=== PATIENT | female | born 1960 | race Caucasian/White ===

== ENCOUNTER 2016-11-12 17:17 | Emergency (ER) | payer OTHER ==
[~2016-11-12] VITALS: Ht 165.1 cm; Wt 65.8 kg
[~2016-11-12 17:17] MED LIST: ALPRAZOLAM0.5 M4 PO; CLONAZEPAM1 M2 PO; CYCLOBENZAPRINE10 M1 PO; CYMBALTA 30 MG30 MG PO; CYMBALTA60 MG PO; DILAUDID2 M1 PO; DOXYCYCLINE HY100 M2 PO; DUEXIS 800-26.1 EACH PO; FLEXERIL10 MG PO; GABAPENTIN300 M2 PO; KEFLEX500 MG PO; MEDROL DOSEPAK1 PAC PO; METAXALONE800 M1 PO; OMEPRAZOLE40 M1 PO; OXYCODONE/APAP1 TAB PO; OXYCODONE5 M1 PO; PERCOCET 325 MG1 TA2 PO; PREVACID 30MG30 MG PO; SUPER B COMPLEX1 CAP PO; SYNTHROID125 MCG PO; TRAMADOL HCL50 M1 PO; VICODIN 5-3001 EACH PO; VITAMIN C500 M8 PO; VITAMIN D1000 IU PO; ZOFRAN4 M2 PO
[2016-11-12 17:38] VITALS: BP 125/95
[2016-11-12] MEDS ORDERED: BACLOFEN10 M1 PO (18:24)
[2016-11-12] MEDS ORDERED: PERCOCET 5-3251 EACH PO (18:24)
--- NOTE | 2016-11-12 18:26 | ED NECK/BACK PAIN COMPLAINT ---
History of Present Illness General Chief Complaint: Lower Extremity Problems Stated Complaint: BILATERAL LOWER EXTREMITY PAIN Source: patient, old records Exam Limitations: no limitations Vital Signs & Intake/Output Vital Signs & Intake/Output Vital Signs Date Time Temp Pulse Resp B/P B/P Pulse O2 O2 Flow FiO2 Mean Ox Delivery Rate 11/12 1808 Room Air 11/12 1738 96.9 105 18 125/95 100 Room Air Allergies Coded Allergies: NSAIDS (Non-Steroidal Anti-Inflamma (AREVALO HOLE IN STOMACH 10/08/15) amoxicillin (From AUGMENTIN) (NAUSEA 10/08/15) aspirin (AREVALO HOLE IN STOMACH, NAUSE 10/08/15) clavulanic acid (From AUGMENTIN) (NAUSEA 10/08/15) morphine (HIVES 10/08/15) Reconcile Medications Ascorbic Acid (Vitamin C) 500 MG TABLET 1 TAB PO DAILY SUPPLEMENT (Reported) B COMPLEX WITH VITAMIN C (Super B Complex With C) 1 EACH CAPSULE 1 CAP PO DAILY SUPPLEMENT (Reported) Baclofen 10 MG TABLET 1-2 TAB PO TID PRN muscle strain Cholecalciferol (Vitamin D3) 1,000 UNIT TABLET 3 TAB PO DAILY SUPPLEMENT ( Reported) Clonazepam 1 MG TABLET 1 TAB PO TID ANXIETY (Reported) Cyclobenzaprine HCl 10 MG TABLET 1 TAB PO TID PRN MUSCLE SPASMS (Reported) DULOXETINE HCL (Cymbalta) 60 MG CAPSULE.DR 1 CAP PO DAILY CARPAL TUNNEL AND FIBROMYALGIA (Reported) Duloxetine Hydrochloride (Cymbalta) 30 MG CAPSULE.DR 1 CAP PO DAILY CARPAL TUNNEL/FIBROMYALGIA (Reported) Gabapentin 300 MG CAPSULE 1 CAP PO BID FIBROMYALGIA (Reported) Gabapentin 300 MG CAPSULE 2 CAP PO QPM FIBROMYALGIA (Reported) Hydromorphone HCl (Dilaudid) 2 MG TABLET 1 TAB PO BIDP PRN breakthrough micky Hydromorphone HCl (Dilaudid) 2 MG TABLET 1 TAB PO BIDP PRN PAIN Ibuprofen/Famotidine (Duexis 800-26.6 MG Tablet) 1 EACH TABLET 1 TAB PO TID NSAID (Reported) Levothyroxine Sodium (Synthroid) 125 MCG TABLET 1 TAB PO DAILY AC THYROID ( Reported) Omeprazole 40 MG CAPSULE.DR 1 CAP PO DAILY GI (Reported) Ondansetron HCl (Zofran) 4 MG TABLET 1 TAB PO Q6-8P PRN nausea Oxycodone HCl/Acetaminophen (Percocet 5-325 MG Tablet) 5 MG-325 MG TABLET 1 TAB PO Q6P PRN severe pain Tramadol HCl 50 MG TABLET 2 TAB PO TID FIBROMYALGIA (Reported) Triage Note: PT TO ED FOR EXACERBATION OF CHRONIC BACK PAIN. NO LOSS OF B/B, NO NUMBNESS OR TINGLING. Triage Nurses Notes Reviewed? yes Onset: Morning Duration: hour(s):, constant, continues in ED Timing: recent history Quality/Severity: severe, radiation, sharpness Location: lumbar spine, paraspinous muscles Radiation: upper legs, lower legs Context: turning/bending Method of Injury: no injury Loss of Consciousness: no loss of consciousness Modifying Factors: immobilization, jarring, movement, rest Associated Symptoms: lower back pain LMP (ages 10-50): post menopausal : No Patient currently breastfeeds: No HPI: Several hours prior to admission patient complains of increased chronic low back pain described as sharp while to moderate lower left lumbar area radiating to the upper and lower leg worse with movement turning bending not relieved with current medications. She denies fever chills nausea vomiting diarrhea abdominal pain chest pain shortness breath headache dysuria rash bleeding change in motor sensory function change in bowel bladder habit Past History Travel History Traveled to [place] past 21 day No Medical History Any Pertinent Medical History? see below for history Neurological: FIBROMYALGIA EENT: NONE Cardiovascular: NONE Respiratory: NONE Gastrointestinal: diverticulitis Hepatic: NONE Renal: NONE Musculoskeletal: osteoarthritis, sciatica, BONE SPURS IN GROIN Psychiatric: anxiety, depression Endocrine: hypothyroidism, THYROIDECTOMY Blood Disorders: NONE Cancer(s): NONE JUVENILE CORRECTIONAL OFFICER/Reproductive: NONE Surgical History Surgical History: colon resection Psychosocial History Who do you live with Spouse Services at Home None What is your primary language [place] Tobacco Use: Current Daily Use Daily Tobacco Use Amount/Type: => 5 Cigarettes daily ETOH Use: occasional use Illicit Drug Use: denies illicit drug use Family History Hx Contributory? No Review of Systems Review of Systems Constitutional: Reports: no symptoms. Eyes: Reports: no symptoms. Ears, Nose, Throat, Mouth: Reports: no symptoms. Respiratory: Reports: no symptoms. Cardiovascular: Reports: no symptoms. Gastrointestinal/Abdominal: Reports: no symptoms. Musculoskeletal: Reports: see HPI, back pain, muscle stiffness. Skin: Reports: no symptoms. Neurological/Psychological: Reports: no symptoms. All Other Systems: Reviewed and Negative Physical Exam Physical Exam General Appearance: well developed/nourished, alert, awake, anxious, moderate distress Head: atraumatic, normal appearance Eyes: Bilateral: normal appearance, PERRL, EOMI. Ears, Nose, Throat, Mouth: hearing grossly normal, moist mucous membrane Neck: normal inspection, supple, full range of motion, normal alignment Respiratory: normal breath sounds, chest non-tender, no respiratory distress, quiet respiration, lungs clear Cardiovascular: regular rate/rhythm, normal peripheral pulses, norml femoral pulses equa Peripheral Pulses: 4+ carotid (R), 4+ carotid (L) Gastrointestinal: normal bowel sounds, soft, non-tender, no organomegaly Back: normal inspection, decreased range of motion, muscle spasm, no vertebral tenderness Extremities: non-tender, normal range of motion Straight Leg Raising: Right: Pain at ____ degrees (5). Left: Pain at ____ degrees (5). Sensory: Medial Le: L4R, L4L. Top of Foot: 2: L5R, L5L. Sole of Foot: 2: SIR, [place]. Motor: Deficit L4 Right: No Deficit L4 Left: No Deficit L5 Right: No Deficit L5 Left: No Deficit S1 Right: No Deficit S1 Right: No Walk on Heels: 2: L4 Left, L4 Right. Ext. Big Toe: 3: L5 Left, L5 Right. DTR: Deficit L4 Left: No Deficit L4 Right: No Deficit S1 Left: No Deficit S1 Right: No Patellar: 3: L4 Right, L4 Left. 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 Skin: intact, normal color, warm/dry Progress Differential Diagnosis: herniated disc, myofascial strain, sciatica Plan of Care: Current Medications Sig/Orly Start time Last Medication Dose Stop Time Status Admin Oxycodone/ 1 TAB ONCE ONE 11/12 1829 UNVr Acetaminophen 11/12 1830 (Percocet) Analgesia muscle relaxant (JOSEF HANKS MD) Departure Departure Time of Disposition: 1822 Disposition: HOME OR SELF CARE Condition: Stable Clinical Impression Primary Impression: Sciatica of left side associated with disorder of lumbar spine Referrals: SILVANO WELSH,RUBY ISRAEL MD,OSIRIS Martinez (PCP/Family) Departure Forms: Customer Survey General Discharge Information Prescriptions: Current Visit Scripts Baclofen 1-2 TAB PO TID PRN muscle strain #30 TAB Oxycodone HCl/Acetaminophen (Percocet 5-325 MG Tablet) 1 TAB PO Q6P PRN severe pain #15 TAB
== END 2016-11-12 18:31 ==
LOC: ERH 17:17
DX: M54.42 Lumbago with sciatica, left side (principal)

== ENCOUNTER → 2017-08-27 | Day surgery (SDC) | payer OTHER ==
[~2017-08-27] VITALS: Ht 165.1 cm; Wt 72.6 kg
[~2017-08-27] MED LIST changes: +ALPRAZOLAM ER0.5 MG PO; +AMITRIPTYLINE H25 M2 PO; +AMITRIPTYLINE H50 M2 PO; +BACLOFEN10 M1 PO; +CIPRO500 M1 PO; +FLAGYL500 MG PO; +NEXIUM20 M1 PO; +PERCOCET 5-3251 EACH PO; -VITAMIN D1000 IU PO; +VITAMIN D31000 UNI1 PO
--- NOTE | 2017-08-27 11:15 | Operative Report ---
Operative/Inv Procedure Report Surgery Date: 08/27/17 Name of Procedure: Laparoscopic incisional hernia repair Pre-Operative Diagnosis: Incisional hernia Post-Operative Diagnosis: Same Estimated Blood Loss: scant Surgeon/Facilities Manager: Omero WELSH,Anand Goncalves/Lavern BROOKS Anesthesia: general endotracheal tube Implants: 20 x 25cm Parietex Operative Indication: 57-year-old woman who had multiple prior abdominal operations presents with reducible incisional hernia for elective repair Operative/Procedure Note Note: After consent patient was brought to the operative room and laid supine. Gen. anesthesia was obtained and her left arm tucked. She her abdomen was then prepped and draped. The skin and left upper quadrant was after local anesthesia and a transverse incision made sharply. Using a 12 mm optical trocar we gained access to the peritoneum visually. Pneumoperitoneum was achieved. No overt bowel injury was identified. 2, 5 mm ports were placed and left lower quadrant after local anesthesia was instilled and under direct vision the camera. The abdomen was explored. There were numerous adhesions to the anterior abdominal wall with omentum and small bowel. These were taken down with cautery and sharp dissection respectively. There were multiple [place] cheese defects throughout the midline incision. Elected to bridge them with a single piece of Parietex mesh. 20 x 25 cm mesh was chosen. It was marked for orientation and 0 Vicryl transfixion sutures applied in 4 quadrants. It was hydrated rolled up and placed the perineal cavity. It was unraveled below the defect. The transfixion sutures then brought up percutaneously in a sequential fashion. The sutures then tied down after the mesh was laying flat. The mesh was then anchored to the anterior abdominal wall in a double crown fashion using the absorbable tackers. In order to place tacks on the near side to the ports, 2-5 mm ports were placed on the right mid abdomen. Once were happy the placement mesh we allowed the gas to esape. The ports were delivered and fascia and the left upper quadrant closed with 0 Vicryl suture. Skin incisions closed with 4-0 Vicryl. Steri-Strips and sterile dressing applied. Sponge and needle counts are correct CC: Chato WELSH,Vignesh Martinez
== END ==
LOC: STS 08-22 07:00
DX: K43.2 Incisional hernia without obstruction or gangrene (principal); K21.9 Gastro-esophageal reflux disease without esophagitis; M79.7 Fibromyalgia; F17.200 Nicotine dependence, unspecified, uncomplicated
CPT/HCPCS: C1781; J0131; J0690; J2250; J3490